=== PATIENT | female | born 1965 | race American Indian/Alaskan Native ===

== ENCOUNTER 2017-08-02 10:55 | Outpatient (CLI) | payer BC ==
--- NOTE | 2017-08-03 07:59 | Mammography Report ---
BILATERAL DIGITAL SCREENING MAMMOGRAM with CAD: 08/02/17 10:55:00 CLINICAL: Routine screening. COMPARISON:11/25/15 FINDINGS: The breasts are heterogeneously dense, which may obscure small masses. No mass, architectural distortion or suspicious calcifications. IMPRESSION: No mammographic evidence of malignancy. BI-RADS CATEGORY: 1 - - Negative RECOMMENDATION: Routine mammographic screening in one year. COMMENT: Patient follow-up letters are generated by our [employer] application.
== END 2017-08-02 10:56 | disposition home or self-care (01) ==
LOC: SPVWC 10:55
PROVIDERS: ATTEND Internal Medicine
DX: Z12.31 Encounter for screening mammogram for malignant neoplasm of breast (principal)
CPT/HCPCS: 77067; G0202

== ENCOUNTER 2019-06-27 11:21 | Outpatient (CLI) | payer OTHER ==
--- NOTE | 2019-06-30 12:29 | Mammography Report ---
DIGITAL SCREENING MAMMOGRAM WITH CAD, 06/27/2019 INDICATION: Routine screening mammography. TECHNIQUE: Digital bilateral 2D mammography was obtained in the craniocaudal and mediolateral obliq ue projections. This examination was interpreted with the benefit of Computer-Aided Detection analysi s. COMPARISON: 11/09/2015 FINDINGS: Breast Density: The breasts are heterogeneously dense, which may obscure small masses. There is no evidence of dominant mass, suspicious calcifications or architectural distortion in eithe r breast. Left surgical changes and calcifications are stable. IMPRESSION: BI-RADS Category 2: Benign. No mammographic evidence of malignancy. Recommend routine screening ma mmography in one year. A "normal" or negative report should not discourage follow up or biopsy of a clinically significant f inding. A written summary of these findings will be mailed to the patient. The patient will be entered into a mammography reporting system which will generate a reminder letter for the patient's next appointmen t at the appropriate interval. The [employer] recommends yearly mammograms starting at age 40 and continuing as l doreen as a woman is in good health. Breast MRI is recommended for women with an approximate 20-25% or greater lifetime risk of breast cancer, including women with a strong family history of breast or ova sridevi cancer or who have been treated for Hodgkin's disease. Signer Name: Mamadou Lozoya MD Signed: 06/30/2019 12:24 PM Workstation Name: [id number]
== END 2019-06-27 11:22 | disposition home or self-care (01) ==
LOC: SPVWC 11:21
PROVIDERS: ATTEND Obstetrics & Gynecology
DX: Z12.31 Encounter for screening mammogram for malignant neoplasm of breast (principal)
CPT/HCPCS: 77067

== ENCOUNTER 2020-08-03 11:15 | Outpatient (CLI) | payer OTHER ==
--- NOTE | 2020-08-03 16:36 | Mammography Report ---
DIGITAL SCREENING MAMMOGRAM WITH CAD, 08/03/2020 INDICATION: Routine screening mammography. TECHNIQUE: Digital bilateral 2D mammography was obtained in the craniocaudal and mediolateral obliq ue projections. This examination was interpreted with the benefit of Computer-Aided Detection analysi s. COMPARISON: 06/27/2019, 08/02/2017, 11/25/2015, 11/09/2015 FINDINGS: Breast Density: The breasts are heterogeneously dense, which may obscure small masses. There is no evidence of dominant mass, suspicious calcifications or architectural distortion in eithe r breast. Postsurgical changes are again noted in the left breast. IMPRESSION: Follow up recommendation: Routine yearly BI-RADS Category 2: Benign. A "normal" or negative report should not discourage follow up or biopsy of a clinically significant f inding. A written summary of these findings will be mailed to the patient. The patient will be entered into a mammography reporting system which will generate a reminder letter for the patient's next appointmen t at the appropriate interval. The [employer] recommends yearly mammograms starting at age 40 and continuing as l doreen as a woman is in good health. Breast MRI is recommended for women with an approximate 20-25% or greater lifetime risk of breast cancer, including women with a strong family history of breast or ova sridevi cancer or who have been treated for Hodgkin's disease. Signer Name: Mehnaz Dobbs MD Signed: 08/03/2020 4:31 PM Workstation Name: [id number]
== END 2020-08-03 11:16 | disposition home or self-care (01) ==
LOC: SPVWC 11:15
PROVIDERS: ATTEND Internal Medicine
DX: Z12.31 Encounter for screening mammogram for malignant neoplasm of breast (principal); N64.89 Other specified disorders of breast; Z98.890 Other specified postprocedural states
CPT/HCPCS: 77067

== ENCOUNTER 2021-08-24 14:46 | Outpatient (CLI) | payer OTHER ==
--- NOTE | 2021-08-25 09:01 | Mammography Report ---
DIGITAL SCREENING MAMMOGRAM WITH CAD, 08/24/2021 CLINICAL INFORMATION / INDICATION: Routine screening mammography. SCREENING MAMMO Z12.31 TECHNIQUE: Digital bilateral 2D mammography was obtained in the craniocaudal and mediolateral obliqu e projections. This examination was interpreted with the benefit of Computer-Aided Detection analysis . COMPARISON: 07/18/2012 through 08/03/2023 FINDINGS: Breast Density: The breasts are heterogeneously dense, which may obscure small masses. No dominant mass, suspicious calcifications, or architectural distortion in either breast. Left breast scarring is stable. IMPRESSION: No mammographic evidence of malignancy. Follow up recommendation: Routine yearly BI-RADS Category 2: Benign. A "normal" or negative report should not discourage follow up or biopsy of a clinically significant f inding. A written summary of these findings will be mailed to the patient. The patient will be entered into a mammography reporting system which will generate a reminder letter for the patient's next appointmen t at the appropriate interval. The [employer] recommends yearly mammograms starting at age 40 and continuing as l doreen as a woman is in good health. Breast MRI is recommended for women with an approximate 20-25% or greater lifetime risk of breast cancer, including women with a strong family history of breast or ova sridevi cancer or who have been treated for Hodgkin's disease. Signer Name: Vipul Walton MD Signed: 08/25/2021 8:57 AM Workstation Name: [id number]
== END 2021-08-24 14:47 | disposition home or self-care (01) ==
LOC: SPVWC 14:46
PROVIDERS: ATTEND Internal Medicine
DX: Z12.31 Encounter for screening mammogram for malignant neoplasm of breast (principal); N64.89 Other specified disorders of breast
CPT/HCPCS: 77067

== ENCOUNTER 2021-09-30 07:27 | Day surgery (SDC) | payer OTHER ==
[~2021-09-30 07:27] MED LIST: SODIUM CHLORIDE 0.9% 1000 ML 1,000 ML IV SCH
--- NOTE | 2021-09-30 08:27 | Anesthesia Day of Surgery ---
Anesthesia Day of Surgery - Day of Surgery Patient Examined: Yes Patient H&P Reviewed: Yes Patient is NPO: Yes
--- NOTE | 2021-09-30 08:27 | Anesthesia Consultation ---
Anesthesia Consult and Med Hx Date of service: 09/30/21 - Airway Anesthetic Teeth Evaluation: Good ROM Head & Neck: Adequate Mental/Hyoid Distance: Adequate Mallampati Class: Class II Intubation Access Assessment: Probably Good - Pre-Operative Health Status ASA Pre-Surgery Classification: ASA2 Proposed Anesthetic Plan: MAC - Cardiovascular System Hx Hypertension: Yes - Central Nervous System Hx Psychiatric Problems: Yes (anxiety) - Gastrointestinal Hx Ulcer: No (h/o colon polyps) Hx Gastroesophageal Reflux Disease: Yes - Additional Comments Anesthesia Medical History Comments: Patient reports that during last colonoscopy she developped bradicardia that required correction.
[2021-09-30] MEDS ORDERED: propofoL 200 MG/20 ML VIAL IV ONE ×2 (08:33→08:47)
[2021-09-30] MEDS ORDERED: LIDOCAINE MPF (2%) 20 MG/1 ML VIAL 5 ML ONE (08:34)
--- NOTE | 2021-09-30 09:23 | Procedure Note ---
Date of procedure: 09/30/21 Pre-op diagnosis: H/O Colon Polyps/ F/H/O Colon Cancer (mother)/ F/H/O Cancer(Uterine Cancer) Post-op diagnosis: other (Multiple,Transverse Colon Polyps/ Minor, Diverticuli/ Minor, Internal Hemorrhoids/Normal,Terminal Ileal Mucosa) Procedure: Colonoscopy with Cold,Snare Polypectomy and Cold Biopsy Anesthesia: MAC Surgeon: MAN COLVIN Estimated blood loss: minimal Pathology: list Specimen disposition: to lab Condition: stable Disposition: same day (Encourage fiber inake. Avoid aspirin and NSAID for 5 days; otherwise resume home medication and F/U in 1 to 2 weeks ([phone]).)
[2021-09-30 09:33] VITALS: BP 119/73
--- NOTE | 2021-09-30 09:55 | Post Anesthesia Evaluation ---
- Post Anesthesia Evaluation Patient Participated: Yes Airway Patent: Yes Stable Respiratory Function: Yes Nausea/Vomiting: No Temp > 96.8F: Yes Pain Manageable: Yes Adequeate Hydration: Yes Anesthesia Complications: No
--- NOTE | 2021-09-30 10:49 | Operative Report ---
DATE OF SURGERY: 09/30/2021 PROCEDURE: Colonoscopy with cold snare polypectomy and cold biopsy. INDICATIONS: This is a 56-year-old -English female with a strong family history of cancer. Her mother had colon cancer at a relatively young age of 53, older sister had uterine cancer. She has had prior history of colon polyps. Repeat colonoscopy was done to make sure that there was not any recurrence of any polyps. She did have a vasovagal response to the colonoscopy last time and had to be given atropine type drugs to bring her heart rate up. DESCRIPTION OF PROCEDURE: Procedure was done again this time with MAC anesthesia. Initial rectal examination was unremarkable. The instrument was passed through the rectum onto the cecum, which was identified with the ileocecal valve and appendiceal orifice. Visualization was fair to good. It was fair in the proximal colon, which was washed with copious amounts of water. The terminal ileum was intubated, showed normal mucosa. Cecum, ascending colon showed normal mucosa. Most of the proximal transverse colon showed normal mucosa, but in the mid to the distal transverse colon, there were 4 polyps that were removed, one by cold biopsy and the other by cold snare polypectomy and retrieved with using the cold biopsy forceps. While passing the splenic flexure, the patient did have a slight bradycardia, which was resolved on its own. There was minor diverticula also noted near the hepatic flexure area. No other diverticula was noted. The left colon showed normal mucosa and the rectum showed some minor internal hemorrhoid. There was minimal bleeding associated with the procedure. No complications associated with the procedure. ASSESSMENT: History of colon polyp, family history of colon cancer. Mother had colon cancer at 53, family history of uterine cancer. Sister had uterine cancer. The patient had multiple transverse colon polyps, which was small that they were between 8-10 mm in diameter and 4 in number, minor diverticula, minor internal hemorrhoids, normal ileal mucosa. PLAN: To encourage the patient to take fiber supplements. Avoid aspirin and aspirin-related products for the next few days and follow up in the office in 1-2 weeks' time. Procedure was done in the GI lab with assistance of the GI lab team, which included the GI nurse, ordnance engineering technician and with assistance of anesthesia. TID: [id number] RECEIPT: [id number] KJ/PRE/IQB
== END 2021-09-30 10:15 | disposition home or self-care (01) ==
LOC: GIO 07:27
DX: Z12.11 Encounter for screening for malignant neoplasm of colon (principal); D12.3 Benign neoplasm of transverse colon; K64.8 Other hemorrhoids; K57.30 Diverticulosis of large intestine without perforation or abscess without bleeding; K63.89 Other specified diseases of intestine; I10 Essential (primary) hypertension; K21.9 Gastro-esophageal reflux disease without esophagitis; F41.9 Anxiety disorder, unspecified; Z79.899 Other long term (current) drug therapy; Z98.890 Other specified postprocedural states; Z88.8 Allergy status to other drugs, medicaments and biological substances; Z86.010 Personal history of colon polyps; Z80.0 Family history of malignant neoplasm of digestive organs
CPT/HCPCS: 45380; 45385; 88305; J2704; J3490; J7030; J7120; Q0162